=== PATIENT | female | born 1980 | race Caucasian/White ===

== ENCOUNTER 2019-07-17 08:27 | Day surgery (SDC) | payer OTHER ==
[2019-07-16 08:16] VITALS: BMI 32.8
[2019-07-17 10:43] VITALS: TEMP 97.5
[2019-07-17 11:30] VITALS: BP 109/65; PULSE 63
--- NOTE | 2019-07-18 16:32 | PATH ---
Surgical Pathology Report Patient Name: PRIMO LEONG [facility]. Rec. #: [id number] /Age/Gender: 1980 (Age: 39) / F Account: [id number] Location: [facility]-ENDOSCOPY Taken: 07/17/2019 Received: 07/17/2019 Reported: 07/18/2019 Physicians: Sabina Olguin M.D. Specimen(s) Received STOMACH Clinical History Epigastric pain Postoperative diagnosis: Normal EGD Final Diagnosis STOMACH, BIOPSY: GASTRIC MUCOSA WITH MODERATELY ACTIVE CHRONIC GASTRITIS. IMMUNOSTAIN FOR H. PYLORI IS POSITIVE. NEGATIVE FOR INTESTINAL METAPLASIA. Electronically Signed Cecille Lopez M.D. Gross Description Received in formalin, labeled "stomach biopsy" are 4 dailey, irregular portions of soft tissue averaging 0.4 cm. in greatest dimension. The specimens are submitted in toto in one cassette. /07/17/2019 saudi/07/17/2019
== END 2019-07-17 11:32 | disposition home or self-care (01) ==
LOC: JASU-ENDO 08:27
PROVIDERS: ATTEND Internal Medicine Gastroenterology
PROC: 0DB68ZX Excision of Stomach, Via Natural or Artificial Opening Endoscopic, Diagnostic (ICD-10-PCS; principal; 2019-07-17 09:30)
DX: K29.50 Unspecified chronic gastritis without bleeding (principal)
CPT/HCPCS: 81025

== ENCOUNTER 2023-07-05 17:06 | Emergency (ER) | payer OTHER ==
[2023-07-05 18:02] VITALS: TEMP 99.6; BMI 32.3
[2023-07-05 19:51] LABS: BASO % 1.3 % (0-2.0); EOS % 0.3 % (0-4.5); HEMATOCRIT 39.8 % (32.4-45.2); HEMOGLOBIN 13.5 GM/dL (10.7-15.3); LYMPH % 31.9 % (8-40); MCH 27.9 pg (25.7-33.7); MEAN CELL VOLUME 81.9 fl (80-96); MEAN PLT VOLUME 10.7 fl (7.5-11.1); MONO % 6.5 % (3.8-10.2); PLATELET COUNT 186 10^3/uL (134-434); RBC 4.86 M/mm3 (3.60-5.2); RDW 15.3 % (11.6-15.6); WHITE BLOOD COUNT 6.7 K/mm3 (4.0-10.0)
[2023-07-05] MEDS: KETOROLAC TROMETHAMINE 15 MG/ML VIAL IVPUSH ONE (19:51)
[2023-07-05 20:18] LABS: POTASSIUM 3.6 mmol/L (3.5-5.1)
[2023-07-05 20:20] LABS: ALBUMIN 4.4 g/dl (3.4-5.0); CALCIUM 9.2 mg/dL (8.5-10.1)
[2023-07-05 20:21] LABS: BLOOD UREA NITROGEN 9.8 mg/dL (7-18); MAGNESIUM 2.7 mg/dL (1.8-2.4)
[2023-07-05 20:23] LABS: CREATININE 0.7 mg/dL (0.55-1.3)
[2023-07-05 20:25] LABS: BILIRUBIN,TOTAL 0.6 mg/dL (0.2-1)
[2023-07-05 22:58] VITALS: BP 136/84; PULSE 74; RESP 18
== END 2023-07-05 22:58 | disposition home or self-care (01) ==
LOC: JER 17:06
PROC: 3E0333Z Introduction of Anti-inflammatory into Peripheral Vein, Percutaneous Approach (ICD-10-PCS; principal; 2023-07-05)
DX: R20.2 Paresthesia of skin (principal); R00.2 Palpitations; R42 Dizziness and giddiness; R51.9 Headache, unspecified; Z20.822 Contact with and (suspected) exposure to COVID-19
CPT/HCPCS: 0241U-QW; 36415; 71046-TC-FY; 80053; 83735; 84439; 84443; 84484; 84703; 85025; 93005; 93010; 99285-25

== ENCOUNTER 2023-10-03 11:11 | Emergency (ER) | payer OTHER ==
[2023-10-03 11:17] VITALS: RESP 20; BMI 33.3
[2023-10-03] MEDS ORDERED: MECLIZINE HCL 25 MG TABLET (FP) ONE (12:26)
[2023-10-03] MEDS ORDERED: FAMOTIDINE 20 MG TABLET ONE (12:26)
[2023-10-03] MEDS ORDERED: ONDANSETRON *ODT* 4 MG TABLET ONE (12:26)
[2023-10-03] MEDS: ONDANSETRON 4 MG TABLET PO ONE (12:27)
[2023-10-03] MEDS: FAMOTIDINE 20 MG TABLET PO ONE (12:27)
[2023-10-03] MEDS: MECLIZINE HCL 25 MG TABLET (FP) PO ONE ×2 (12:27)
[2023-10-03 13:47] LABS: EPI CELLS 28 /uL (0-25.1); HYALINE CASTS 1 /uL (0-3.1); URINE APPEARANCE CLEAR; URINE BACTERIA 982 /uL (0-1359); URINE BILIRUBIN NEGATIVE (NEGATIVE); URINE COLOR YELLOW; URINE GLUCOSE (UA) NEGATIVE (NEGATIVE); URINE KETONE TRACE (NEGATIVE); URINE LEUK ESTERASE NEGATIVE (NEGATIVE); URINE NITRITE NEGATIVE (NEGATIVE); URINE PROTEIN NEGATIVE (NEGATIVE); URINE RBC 26 /uL (0-23.9); URINE UROBILINOGEN 0.2 mg/dL (0.2-1.0); URINE WBC 19 /uL (0-25.8)
[2023-10-03 13:51] LABS: EOS % 0.2 % (0-4.5); HEMATOCRIT 39.9 % (32.4-45.2); HEMOGLOBIN 13.1 GM/dL (10.7-15.3); LYMPH % 28.4 % (8-40); MCH 27.9 pg (25.7-33.7); MCHC 32.9 g/dl (32.0-36.0); MEAN CELL VOLUME 84.8 fl (80-96); MEAN PLT VOLUME 10.2 fl (7.5-11.1); MONO % 4.1 % (3.8-10.2); NEUT % 66.3 % (42.8-82.8); PLATELET COUNT 184 10^3/uL (134-434); RDW 15.4 % (11.6-15.6); WHITE BLOOD COUNT 6.4 K/mm3 (4.0-10.0)
[2023-10-03] MEDS ORDERED: METOCLOPRAMIDE HCL INJECTION 10 MG/2 ML VIAL ONE (13:55)
[2023-10-03] MEDS: SODIUM CHLORIDE 0.9% 500 ML INFUS.BAG IV ONE (13:58)
[2023-10-03] MEDS: METOCLOPRAMIDE HCL INJECTION 10 MG/2 ML VIAL IVPUSH ONE (13:59)
[2023-10-03 14:07] LABS: POTASSIUM 3.7 mmol/L (3.5-5.1)
[2023-10-03 14:09] LABS: BLOOD UREA NITROGEN 10.8 mg/dL (7-18); CALCIUM 8.7 mg/dL (8.5-10.1)
[2023-10-03 14:12] LABS: CREATININE 0.6 mg/dL (0.55-1.3)
[2023-10-03 14:14] LABS: BILIRUBIN,TOTAL 0.4 mg/dL (0.2-1); TOT PROT 7.4 g/dl (6.4-8.2)
[2023-10-03 15:19] VITALS: BP 122/80; PULSE 74; TEMP 97.2
== END 2023-10-03 15:42 | disposition home or self-care (01) ==
LOC: JER 11:11
PROC: 3E030GC Introduction of Other Therapeutic Substance into Peripheral Vein, Open Approach (ICD-10-PCS; principal; 2023-10-03)
PROC: 3E030GC Introduction of Other Therapeutic Substance into Peripheral Vein, Open Approach (ICD-10-PCS; 2023-10-03)
PROC: 3E030GC Introduction of Other Therapeutic Substance into Peripheral Vein, Open Approach (ICD-10-PCS; 2023-10-03)
DX: R42 Dizziness and giddiness (principal); R11.0 Nausea; R51.9 Headache, unspecified
CPT/HCPCS: 36415; 80053; 81003; 84484; 84703; 85025; 87086; 93005; 93010; 99284-25

== ENCOUNTER 2023-10-06 03:29 | Emergency (ER) | payer OTHER ==
[2023-10-06 03:37] VITALS: TEMP 98.4; BMI 34.1
[2023-10-06] MEDS ORDERED: ACETAMINOPHEN INJECTION 100 ML IVPB ONE (04:23)
[2023-10-06] MEDS: ACETAMINOPHEN 1000 MG/100 ML BAG IVPB ONE (04:26)
[2023-10-06 05:25] LABS: BASO % 1.1 % (0-2.0); EOS % 0.3 % (0-4.5); HEMATOCRIT 40.2 % (32.4-45.2); HEMOGLOBIN 13.5 GM/dL (10.7-15.3); LYMPH % 32.3 % (8-40); MCH 27.9 pg (25.7-33.7); MCHC 33.5 g/dl (32.0-36.0); MEAN CELL VOLUME 83.3 fl (80-96); MEAN PLT VOLUME 10.7 fl (7.5-11.1); MONO % 6.2 % (3.8-10.2); NEUT % 60.1 % (42.8-82.8); PLATELET COUNT 192 10^3/uL (134-434); RBC 4.83 M/mm3 (3.60-5.2); RDW 15.1 % (11.6-15.6); WHITE BLOOD COUNT 6.7 K/mm3 (4.0-10.0)
[2023-10-06 05:36] VITALS: BP 132/83; PULSE 65; RESP 14
[2023-10-06 05:38] LABS: POTASSIUM 3.4 mmol/L (3.5-5.1)
[2023-10-06 05:40] LABS: ALBUMIN 4.5 g/dl (3.4-5.0); BLOOD UREA NITROGEN 12.6 mg/dL (7-18); CALCIUM 9.2 mg/dL (8.5-10.1)
[2023-10-06 05:44] LABS: CREATININE 0.7 mg/dL (0.55-1.3)
[2023-10-06 05:45] LABS: BILIRUBIN,TOTAL 0.6 mg/dL (0.2-1); TOT PROT 8.1 g/dl (6.4-8.2)
[2023-10-06 06:42] LABS: INR 1.01 (0.83-1.09); PROTHROMBIN TIME (PATIENT) 11.4 SEC (9.7-13.0)
[2023-10-06 06:45] LABS: ACTIVATED PTT 27.6 SECONDS (25.2-36.5)
[2023-10-06] MEDS ORDERED: POTASSIUM CHLORIDE ORAL LIQUID 20 MEQ/15 ML ONE (06:58)
[2023-10-06] MEDS: POTASSIUM CHLORIDE ORAL LIQUID 20 MEQ/15 ML PO ONE (07:04)
== END 2023-10-06 08:18 | disposition home or self-care (01) ==
LOC: JER 03:29
PROC: 3E033NZ Introduction of Analgesics, Hypnotics, Sedatives into Peripheral Vein, Percutaneous Approach (ICD-10-PCS; principal; 2023-10-06)
DX: R07.89 Other chest pain (principal)
CPT/HCPCS: 36415; 71045-TC-FY; 80053; 84484; 84703; 85025; 85610; 85730; 93005; 93010; 99285-25; J0131

== ENCOUNTER 2024-10-10 17:13 | Emergency (ER) | payer OTHER ==
[2024-10-10 17:34] VITALS: BP 134/99; PULSE 100; RESP 18; TEMP 98.4; BMI 34.3
[2024-10-10] MEDS ORDERED: ACETAMINOPHEN 325 MG TABLET (FP) ONE (18:55)
[2024-10-10] MEDS ORDERED: FAMOTIDINE 20 MG TABLET ONE (18:55)
[2024-10-10] MEDS ORDERED: MAG HYDROX/AL HYDROX/SIMETH 30 ML UNIT-DOSE CUP ONE (18:55)
[2024-10-10] MEDS ORDERED: LIDOCAINE 5% TOPICAL PATCH ONE (18:56)
[2024-10-10] MEDS: ACETAMINOPHEN 325 MG TABLET (FP) PO ONE (19:09)
[2024-10-10] MEDS: MAG HYDROX/AL HYDROX/SIMETH -MYLANTA- ORAL SUSPENSION PO ONE (19:11)
[2024-10-10] MEDS: LIDOCAINE 5% TOPICAL PATCH TP ONE (19:11)
[2024-10-10] MEDS: FAMOTIDINE 20 MG TABLET PO ONE (19:12)
[2024-10-10 19:17] LABS: ABSOLUTE IMMATURE GRANULOCYTES 0.02 x10^3/uL (0.0-0.031); BASOPHILS # 0.05 x10^3/uL (0.01-0.08); EOSINOPHIL % 0.6 % (0.7-5.8); EOSINOPHILS # 0.04 x10^3/uL (0.04-0.36); HEMATOCRIT 36.1 % (34.1-44.9); HEMOGLOBIN 11.2 g/dL (11.2-15.7); MEAN CELL VOLUME 81.9 fl (79.4-94.8); MEAN PLT VOLUME 11.6 fl (9.4-12.3); MONOCYTE # 0.56 x10^3/uL (0.24-0.86); MONOCYTE % 8.4 % (4.7-12.5); PLATELET COUNT 188 x10^3/uL (182-369); RDW 14.5 % (12.2-17.1)
[2024-10-10 19:38] LABS: POTASSIUM 3.5 mmol/L (3.5-5.1)
[2024-10-10 19:40] LABS: CALCIUM 9.5 mg/dL (8.5-10.1)
[2024-10-10 19:41] LABS: BLOOD UREA NITROGEN 11.1 mg/dL (7-18)
[2024-10-10 19:44] LABS: CREATININE 0.7 mg/dL (0.55-1.3)
[2024-10-10 19:45] LABS: BILIRUBIN,TOTAL 0.2 mg/dL (0.2-1); TOT PROT 7.2 g/dl (6.4-8.2)
[2024-10-10] MEDS ORDERED: LIDOCAINE PATCH REMOVAL MC SCH (22:00)
== END 2024-10-10 20:22 | disposition home or self-care (01) ==
LOC: JER 17:13
DX: R07.2 Precordial pain (principal); G89.29 Other chronic pain; R05.9 Cough, unspecified; K21.9 Gastro-esophageal reflux disease without esophagitis; T38.3X5A Adverse effect of insulin and oral hypoglycemic [antidiabetic] drugs, initial encounter; R42 Dizziness and giddiness
CPT/HCPCS: 0241U-QW; 36415; 71046-TC-FY; 80053; 83690; 84484; 84703; 85025; 93005; 93010; 99285-25